=== PATIENT | male | born 1990 | race American Indian/Alaskan Native ===

== ENCOUNTER 2017-08-27 22:14 | Emergency (ER) | payer OTHER ==
[2017-08-27] MEDS ORDERED: NACL 0.9% IR ONE (23:53)
[2017-08-27] MEDS ORDERED: NACL 0.9% 500 ML IR ONE (23:54)
[2017-08-28] MEDS ORDERED: TYLENOL #3 PO ONE (00:23)
[2017-08-28] MEDS ORDERED: TYLENOL #3 ONE (00:26)
--- NOTE | 2017-08-28 00:49 | Emergency Department Report ---
ED Laceration HPI - HPI Chief Complaint: Extremity Injury, Upper Stated Complaint: FINGER INJURY Time Seen by Provider: 08/28/17 00:46 Occurred When: Today Location: Upper Extremity Severity: mild Tetanus Status: Unknown Laceration Symptoms: Yes Pain, No Foreign Body Sensation, No Numbness, No Weakness Other History: 27-year-old male presents with right index finger laceration that he sustained today from changing a light bulb in his house. Patient states he was change in lipoma and the light bulb broke and cut his hand. Patient states he does not know when his last tetanus was. He states bleeding was controlled after incident ED Review of Systems ROS: Stated complaint: FINGER INJURY Other details as noted in HPI Constitutional: denies: chills, fever Eyes: denies: eye pain, eye discharge, vision change ENT: denies: ear pain, throat pain Respiratory: denies: cough, shortness of breath, wheezing Cardiovascular: denies: chest pain, palpitations Endocrine: no symptoms reported Gastrointestinal: denies: abdominal pain, nausea, diarrhea Genitourinary: denies: urgency, dysuria Musculoskeletal: denies: back pain, joint swelling, arthralgia Skin: denies: rash, lesions Neurological: denies: headache, weakness, paresthesias Psychiatric: denies: anxiety, depression Hematological/Lymphatic: denies: easy bleeding, easy bruising ED Past Medical Hx - Past Medical History Previous Medical History?: No - Surgical History Past Surgical History?: No - Medications Home Medications: Home Medications Medication Instructions Recorded Confirmed Last Taken Type Acetaminophen/Codeine [Tylenol 1 tab PO Q6H PRN #10 tab 08/28/17 Unknown Rx /Codeine # 3 tab] Cephalexin [Keflex] 500 mg PO BID #10 capsule 08/28/17 Unknown Rx Ibuprofen [Motrin] 800 mg PO Q8HR PRN #30 tablet 08/28/17 Unknown Rx Laceration Physical Exam - Exam General: Vital signs noted. No distress. Alert and acting appropriately. Wound Length (cm): 2 Laceration Location: Upper Extremity Laceration Exam: Yes Normal Distal CMS, No Foreign Body, No Exposed Tendon, Vessel, or Nerve, No Tendon Injury ED Course Vital Signs 08/27/17 08/28/17 22:28 00:26 Temperature 98.7 F Pulse Rate 94 H Respiratory 18 18 Rate Blood Pressure 129/78 O2 Sat by Pulse 96 Oximetry - Laceration /Wound Repair Right Posterior Distal Finger Wound Location: upper extremity Wound Length (cm): 2 Wound's Depth, Shape: superficial, irregular, flap Wound Explored: no foreign body removed Irrigated w/ Saline (ccs): 500 Betadine Prep?: Yes Anesthesia: 1% Lidocaine Volume Anesthetic (ccs): 8 Wound Repaired With: sutures Suture Size/Type: 3:0 Number of Sutures: 14 Layer Closure?: No Sterile Dressing Applied?: Yes ED Medical Decision Making - Medical Decision Making 27-year-old male presents with finger laceration ED course: She received 1 tablet of Tylenol with codeine, 8 mg of Zofran because he began to feel nauseated shortly before stitches began. The 2-3cm laceration wound was prepped and draped in sterile fashion. Anesthesia was achieved with 8mL of 1% lidocaine. The wound was irrigated with 500cc NS and explored. There were no foreign bodies The wound was reapproximated in 1 layer sutures suing with three 3-0 Vicryl sutures in the dermis with continuous running uninterrupted sutures percutaneously. There was excellent reapproximation of the wound edges. The patient tolerated the procedure without complication patient received tetanus posterior ED today Discussed the patient does not need to return for sutures removal as stitches will dissolve on its own Discussed to follow up with primary care physician. Vital signs are normal patient is not acutely distressed Critical care attestation.: If time is entered above; I have spent that time in minutes in the direct care of this critically ill patient, excluding procedure time. ED Disposition Clinical Impression: Laceration of finger Qualifiers: Encounter type: initial encounter Finger: index finger Damage to nail status: without damage Foreign body presence: without foreign body Laterality: right Qualified Code(s): S61.210A - Laceration without foreign body of right index finger without damage to nail, initial encounter Disposition: TO HOME OR SELFCARE Is pt being admited?: No Does the pt Need Aspirin: No Condition: Stable Instructions: Suture Care (ED), Laceration (ED), Finger Laceration (ED), Absorbable Suture Care (ED) Additional Instructions: Take your antibiotics as prescribed. Follow-up with primary care physician as discussed Prescriptions: Acetaminophen/Codeine [Tylenol /Codeine # 3 tab] 1 tab PO Q6H PRN #10 tab PRN Reason: Pain Cephalexin [Keflex] 500 mg PO BID #10 capsule Ibuprofen [Motrin] 800 mg PO Q8HR PRN #30 tablet PRN Reason: Pain Referrals: PRIMARY CARE,MD [Primary Care Provider] - 3-5 Days [facility] [Outside] - 3-5 Days [facility] [Outside] - 3-5 Days [facility] [Outside] - 3-5 Days Forms: Accompanied Note, Work/School Release Form(ED) Time of Disposition: 02:14
[2017-08-28] MEDS ORDERED: ZOFRAN ODT ONE (01:21)
[2017-08-28] MEDS ORDERED: BOOSTRIX IM ONE (01:22)
[2017-08-28] MEDS ORDERED: XYLOCAINE 2%/ EPI 1:200,000 INFILTRATI ONE ×2 (01:23→01:27)
[2017-08-28] MEDS ORDERED: TRIPLE ANTIBIOTIC TP ONE (01:25)
[2017-08-28 02:19] VITALS: BP 124/73
[2017-08-28] MEDS ORDERED: ZOFRAN ODT PO ONE (02:37)
== END 2017-08-28 02:21 | disposition home or self-care (01) ==
LOC: ED 22:14
DX: S61.210A Laceration without foreign body of right index finger without damage to nail, initial encounter (principal); W25.XXXA Contact with sharp glass, initial encounter; Y93.89 Activity, other specified; Y99.8 Other external cause status; Y92.098 Other place in other non-institutional residence as the place of occurrence of the external cause
CPT/HCPCS: 90471; 90715; A6250; Q0162